=== PATIENT | male | born 1995 | race Caucasian/White ===

== ENCOUNTER 2017-01-31 08:49 | Emergency (ER) | payer BC ==
[2017-01-31 09:20] VITALS: BP 131/68
[2017-01-31] MEDS ORDERED: Silver Sulfadiazine 1% 400gm* 1 APPLIC JAR TOPICAL ONE (09:20)
--- NOTE | 2017-01-31 09:37 | ED ---
Forest Gayle Angela, scribed for Steven Vidales MD on 01/31/17 at 0914 . Burn - HPI Summary HPI Summary: This pt is a 21 y/o male presenting to [facility] c/o burn to left upper thigh since this morning at 0800. Pt reports he was making coffee this morning and only had boxers on when he spilled hot water on his thigh. He rates his pain 8 out of 10 in severity. Pt notes he rinsed his burn and put on an ice pack with minimal relief. His tetanus shot is UTD as he is a student at [employer]. Pt currently has no PCP. - History of Current Complaint Chief Complaint: EDBurnSmokeInh Stated Complaint: LT LEG BURN Time Seen by Provider: 01/31/17 09:13 Hx Obtained From: Patient Occurred: Hours Ago Length of Exposure: Hours Pain Intensity: 8 Pain Scale Used: 0-10 Numeric Location: LLE Character: Erythema, Blisters: Intact Associated Signs & Symptoms: Negative: SOB, Cough, Chest Pain Occupational Injury: No - Allergy/Home Medications Allergies/Adverse Reactions: Allergies Allergy/AdvReac Type Severity Reaction Status Date / Time No Known Allergies Allergy Verified 02/09/15 09:30 PMH/Surg Hx/FS Hx/Imm Hx Endocrine/Hematology History: Denies: Hx Diabetes Cardiovascular History: Denies: Hx Hypertension, Hx Pacemaker/ICD Respiratory History: Denies: Hx Asthma Sensory History: Denies: Hx Hearing Aid Psychiatric History: Denies: Hx Panic Disorder - Surgical History Surgery Procedure, Year, and Place: LEFT KNEE FOR OSTEOCHONDRAL FX Infectious Disease History: No Infectious Disease History: Denies: Traveled Outside the [place] in Last 30 Days - Family History Known Family History: Negative: Other - FHx of blood clott disorder Family History: No FHx of blood clotting disorders - Social History Alcohol Use: Weekly Hx Substance Use: No Substance Use Type: Reports: None Hx Tobacco Use: No Smoking Status (MU): Never Smoked Tobacco Review of Systems Negative: Fever, Chills Eyes: Negative ENT: Negative Respiratory: Negative Gastrointestinal: Negative Positive: Other - Left thigh pain and burn Positive: Other - burn on left thigh Negative: Headache, Weakness, Paresthesia, Numbness All Other Systems Reviewed And Are Negative: Yes Physical Exam - Summary Physical Exam Summary: General: well-appearing, no pain distress Skin: warm, dry. 15 cm x 10 cm burn on left upper anterior thigh that stops just before the left inguinal area. There is erythema with blistering. There is no evidence of burn on the penis or scrotum. There is good sensation everywhere. Total surface area burn = 2%. Head: normal Eyes: EOMI, JONO ENT: normal Neck: supple, nontender Respiratory: CTA, breath sounds present Cardiovascular: RRR Abdomen: soft, nontender Bowel: present Musculoskeletal: normal, strength/ROM intact. LLE: 15 cm x 10 cm burn on left upper anterior thigh. Neurological: normal, sensory/motor intact, A&O x3 Psychological: affect/mood appropriate Triage Information Reviewed: Yes Vital Signs On Initial Exam: Initial Vitals Temp Pulse Resp BP Pulse Ox 97.5 F 51 20 122/75 100 01/31/17 08:51 01/31/17 08:51 01/31/17 08:51 01/31/17 08:51 01/31/17 08:51 Vital Signs Reviewed: Yes - [place] Coma Scale Coma Scale Total: 15 Burn Calculation - Left Leg 18% Left Leg 2nd De - Total 2nd Deg Total: 2 Total % BSA: 2 - [place] Formula for Fluid Resuscitation Weight: 240 lb Total % BSA 2nd & 3rd Degree: 2 24 -Hour Fluid Replacement: 870.9 Diagnostics - Vital Signs Vital Signs Temp Pulse Resp BP Pulse Ox 01/31/17 08:51 97.5 F 51 20 122/75 100 - Laboratory Lab Statement: Any lab studies that have been ordered have been reviewed, and results considered in the medical decision making process. Burn Course/Dx - Course Course Of Treatment: Pt is a 21 y/o male presenting to [facility] c/o burn to left upper thigh since this morning at 0800. Medications reviewed. BP noted and advised to follow up with PCP. RX SILVADENE BID. F/U [facility]. PATIENT REPORTS TD UTD. WILL USE IBUPROFEN FOR PAIN. NO CRITICAL CARE TIME. - Diagnoses Provider Diagnosis: Second degree burn of left leg Discharge - Discharge Plan Condition: Stable Disposition: HOME Patient Education Materials: Second Degree Burn (ED) Referrals: [facility] [Provider Group] [facility] @ [Outside] Additional Instructions: FOLLOW UP WITH [facility]. CHECK ON YOUR TETANUS IMMUNIZATION STATUS. YOU MAY NEED FURTHER TREATMENT AT [facility] AFTER EVALUATION AT [facility]. RETURN TO THE EMERGENCY DEPARTMENT FOR ANY WORSENING OF YOUR CONDITION OR QUESTIONS OR CONCERNS. The documentation as recorded by the Forest brown Angela accurately reflects the service I personally performed and the decisions made by me, Steven Vidales MD.
== END 2017-01-31 09:46 | disposition home or self-care (01) ==
LOC: ED 08:49
DX: T24.202A Burn of second degree of unspecified site of left lower limb, except ankle and foot, initial encounter (principal); M79.652 Pain in left thigh; X10.0XXA Contact with hot drinks, initial encounter; Y93.9 Activity, unspecified; Y92.9 Unspecified place or not applicable
CPT/HCPCS: 99282; A9270-GY

== ENCOUNTER 2017-03-02 17:35 | Emergency (ER) | payer BC ==
--- NOTE | 2017-03-02 18:18 | RAD ---
HISTORY: Right shoulder and clavicle pain, injury COMPARISONS: None VIEWS: 6, Frontal internal rotation, external rotation, outlet, and axillary views of the right shoulder with frontal and frontal oblique views of the right clavicle FINDINGS: BONE DENSITY: Normal. BONES: There is no displaced fracture. There is nonaggressive cortical-based lesion of the proximal humeral diaphysis consistent with a fibrous cortical defect. JOINTS: There is no arthropathy. ALIGNMENT: There is no dislocation. SOFT TISSUES: Unremarkable. OTHER FINDINGS: None. IMPRESSION: NO ACUTE OSSEOUS INJURY TO THE RIGHT SHOULDER OR RIGHT CLAVICLE. IF SYMPTOMS PERSIST, RECOMMEND REPEAT IMAGING.
[2017-03-02 20:06] VITALS: BP 115/58
[2017-03-02] MEDS ORDERED: Ibuprofen TAB* 600 MG PO ONE (20:12)
[2017-03-02] MEDS ORDERED: Ibuprofen TAB* 600 MG ONE (20:12)
--- NOTE | 2017-03-02 20:57 | ED ---
Jane Gayle Emily, scribed for Rito Galanuel on 03/02/17 at 1930 . Upper Extremity Pain - HPI Summary HPI Summary: This patient is a 21 year old M presenting to [facility] with a chief complaint of R shoulder pain that began earlier this afternoon. The pain began upon shoulder-to -shoulder contact during a rugby game. The patient rates the pain 2/10 in severity. Symptoms aggravated by movement. Symptoms alleviated by nothing. Patient denies CP. - History of Current Complaint Chief Complaint: EDShoulderClavicleInj Stated Complaint: SHOULDER INJURY RIGHT Time Seen by Provider: 03/02/17 19:21 Hx Obtained From: Patient Onset/Duration: Started Hours Ago, Still Present Timing: Constant, Lasting Hours Severity Initially: Mild Severity Currently: Mild Pain Location: Shoulder Aggravating Factor(s): Movement Alleviating Factor(s): Nothing Associated Signs & Symptoms: Negative: Chest Pain - Allergies/Home Medications Allergies/Adverse Reactions: Allergies Allergy/AdvReac Type Severity Reaction Status Date / Time No Known Allergies Allergy Verified 02/09/15 09:30 PMH/Surg Hx/FS Hx/Imm Hx Previously Healthy: Yes Endocrine/Hematology History: Denies: Hx Diabetes Cardiovascular History: Denies: Hx Hypertension, Hx Pacemaker/ICD Respiratory History: Denies: Hx Asthma Sensory History: Denies: Hx Hearing Aid Psychiatric History: Denies: Hx Panic Disorder - Surgical History Surgery Procedure, Year, and Place: LEFT KNEE FOR OSTEOCHONDRAL FX Infectious Disease History: No Infectious Disease History: Denies: Traveled Outside the [place] in Last 30 Days - Family History Known Family History: Negative: Other - FHx of blood clott disorder Family History: No FHx of blood clotting disorders - Social History Occupation: Student Lives: With Family Alcohol Use: Weekly Hx Substance Use: No Substance Use Type: Reports: None Hx Tobacco Use: No Smoking Status (MU): Never Smoked Tobacco Review of Systems Negative: Chest Pain Positive: Other - Positive R shoulder pain All Other Systems Reviewed And Are Negative: Yes Physical Exam Triage Information Reviewed: Yes Vital Signs On Initial Exam: Initial Vitals Temp Pulse Resp BP Pulse Ox 98.3 F 60 20 129/67 97 03/02/17 17:41 03/02/17 17:41 03/02/17 17:41 03/02/17 17:41 03/02/17 17:41 Vital Signs Reviewed: Yes Appearance: Positive: Well-Appearing, No Pain Distress Skin: Positive: Warm, Skin Color Reflects Adequate Perfusion, Dry Head/Face: Positive: Normal Head/Face Inspection Eyes: Positive: EOMI, JONO ENT: Positive: Normal ENT inspection Neck: Positive: Supple, Nontender Respiratory/Lung Sounds: Positive: Clear to Auscultation, Breath Sounds Present Cardiovascular: Positive: RRR, Pulses are Symmetrical in both Upper and Lower Extremities Abdomen Description: Positive: Nontender, Soft Bowel Sounds: Positive: Present Musculoskeletal: Positive: Normal, Strength/ROM Intact, Other - Tenderness over R shoulder. No movements restricted. Neurological: Positive: Normal, Sensory/Motor Intact, Alert, Oriented to Person Place, Time, Other - No neurovascular deficit. Diagnostics - Vital Signs Vital Signs Temp Pulse Resp BP Pulse Ox 03/02/17 17:41 98.3 F 60 20 129/67 97 - Laboratory Lab Statement: Any lab studies that have been ordered have been reviewed, and results considered in the medical decision making process. - Radiology Shoulder XR Radiology Interpretation Completed By: Radiologist - Shoulder XR read by radiologist reveals NO ACUTE OSSEOUS INJURY TO THE RIGHT SHOULDER OR RIGHT CLAVICLE. IF SYMPTOMS PERSIST, RECOMMEND REPEAT IMAGING. ED physician has reviewed this radiology report and agrees. Clavicle XR Radiology Interpretation Completed By: Radiologist - Clavicle XR read by radiologist reveals NO ACUTE OSSEOUS INJURY TO THE RIGHT SHOULDER OR RIGHT CLAVICLE. IF SYMPTOMS PERSIST, RECOMMEND REPEAT IMAGING. ED physician has reviewed this radiology report and agrees. Course/Dx - Course Assessment/Plan: This patient is a 21 year old M presenting to [facility] with a chief complaint of R shoulder pain that began earlier this afternoon. The pain began upon wvgicrry-in-czgfozds contact during a rugby game. The patient rates the pain 2/10 in severity. Symptoms aggravated by nothing. Symptoms alleviated by nothing. Patient denies CP. PMHx negative. Physical Exam Findings. Tenderness over R shoulder. No neurovascular deficit. No movements restricted. Medical Decision Making. Shoulder XR read by radiologist reveals NO ACUTE OSSEOUS INJURY TO THE RIGHT SHOULDER OR RIGHT CLAVICLE. IF SYMPTOMS PERSIST,. RECOMMEND REPEAT IMAGING. Clavicle XR read by radiologist reveals NO ACUTE OSSEOUS INJURY TO THE RIGHT SHOULDER OR RIGHT CLAVICLE. IF SYMPTOMS PERSIST,. RECOMMEND REPEAT IMAGING. Patient will be discharged with prescription for ibuprofen and follow up from PCP. The patient is agreeable with this plan. - Diagnoses Differential Diagnosis/HQI/PQRI: Positive: Bursitis, Contusion, Fracture (Open) , Hematoma, Strain, Sprain Provider Diagnoses: Contusion of right shoulder, Sprain of right shoulder Discharge - Discharge Plan Condition: Stable Disposition: HOME Prescriptions: Ibuprofen TAB* [Motrin TAB* 600 MG] 600 mg PO Q8H PRN #20 tab MDD 3 PRN Reason: Pain Patient Education Materials: Ibuprofen (By mouth), Contusion in Adults (ED), Shoulder Sprain (ED) Referrals: [facility] [Primary Care Provider] - 1 Day Additional Instructions: RETURN TO THE EMERGENCY DEPARTMENT FOR CHANGING OR WORSENING SYMPTOMS. The documentation as recorded by the Jane brown Emily accurately reflects the service I personally performed and the decisions made by , Chris Galan.
== END 2017-03-02 20:31 | disposition home or self-care (01) ==
LOC: ED 17:35
DX: S40.011A Contusion of right shoulder, initial encounter (principal); S43.401A Unspecified sprain of right shoulder joint, initial encounter; W50.0XXA Accidental hit or strike by another person, initial encounter; Y93.63 Activity, rugby; Y92.9 Unspecified place or not applicable
CPT/HCPCS: 99282; A9270-GY